=== PATIENT | female | born 1980 | race Caucasian/White ===

== ENCOUNTER 2018-04-11 05:45 | Inpatient (IN) | payer OTHER ==
[2018-04-11] MEDS ORDERED: Penicillin G Potassium 5 MILL.UNITS VIAL ONE (06:52)
[2018-04-11] MEDS ORDERED: Misoprostol 200 MCG TAB PR PRN (07:20)
[2018-04-11] MEDS ORDERED: Carboprost 250 MCG/ML AMP IM PRN (07:20)
[2018-04-11] MEDS ORDERED: Ondansetron HCl/PF 4 MG/2 ML Vial IVP PRN ×3 (07:20→20:01)
[2018-04-11] MEDS ORDERED: HYDROcodone/Acetaminophen 5/325 mg Tablet PO PRN (07:20)
[2018-04-11] MEDS ORDERED: Lidocaine 1% (PF) 30 ML VIAL SC PRN (07:20)
[2018-04-11] MEDS ORDERED: Ibuprofen 800 MG TAB PO PRN (07:20)
[2018-04-11] MEDS ORDERED: Butorphanol Tartrate 1 MG/ML VIAL SLOW IVP PRN (07:20)
[2018-04-11] MEDS ORDERED: Diphenoxylate HCl/Atropine Tablet PO PRN (07:20)
[2018-04-11] MEDS: Lactated Ringer's 1,000 ML IV SCH ×3 (07:30→10:54)
[2018-04-11] MEDS ORDERED: Penicillin G Potassium 5 MILL.UNITS in Sodium Chloride 0.9% 100 ML IVPB SCH (07:30)
[2018-04-11] MEDS ORDERED: NS w/ Oxytocin 10 units 500 ML IV SCH ×2 (07:30)
[2018-04-11 07:45] LABS: Mean Corpuscular HGB CONC 32.5 g/dL (32.0-36.0); Mean Corpuscular Volume 95.2 fL (78.0-98.0); Platelet Count 287 thou/uL (130-400); RBC Distribution Width 13.5 % (11.5-14.5); Red Blood Cell (RBC) Count 3.55 mill/uL (4.20-5.40); White Blood Cell (WBC) Count 15.5 thou/uL (4.8-10.8)
[2018-04-11 08:35] LABS: HBSAg Index 0.23 S/CO (0-0.99); Hep B Surf Ag Non-Reactive S/CO (NonReactive); Syphilis Antibody Nonreactive (Nonreactive); Syphilis Antibody Index 0.04 S/CO (<1.00 Non-Reactive)
[2018-04-11] MEDS ORDERED: Fentanyl 4 mcg/Bup 0.1% Cadd 100 ML ONE (09:21)
[2018-04-11] MEDS ORDERED: diphenhydrAMINE 50 MG/ML VIAL IVP PRN (11:23)
[2018-04-11] MEDS ORDERED: Promethazine HCl 25 MG/ML VIAL IM PRN (11:23)
[2018-04-11] MEDS ORDERED: ePHEDrine/0.9% NaCl/PF SYRINGE 50 mg/10 ml SLOW IVP PRN (11:23)
[2018-04-11] MEDS ORDERED: Naloxone HCl 0.4 mg/ml Vial IVP PRN ×2 (11:23)
[2018-04-11] MEDS ORDERED: Acetaminophen 325 MG TAB PO PRN (11:23)
[2018-04-11] MEDS ORDERED: Lactated Ringer's 500 ML IV PRN (11:23)
[2018-04-11] MEDS ORDERED: Eucerin (Mineral Oil/Petrolatum,White) 30 gm Jar TOP PRN (11:23)
[2018-04-11] MEDS ORDERED: Communication Order-Pharmacy FS SCH (11:30)
[2018-04-11] MEDS ORDERED: Penicillin G 2.5 MILL.units 2.5 MILL.UNITS in Premix Bag 1 BAG IVPB SCH (11:30)
[2018-04-11] MEDS ORDERED: Fentanyl 4 mcg/Bupivacaine 0.1% Cassette 100 ML EPIDURAL SCH (11:30)
[2018-04-11] MEDS: NS / Oxytocin 40 units/1000ml 1,000 ML IV PRN ×2 (15:20→17:15)
[2018-04-11] MEDS ORDERED: cloNIDine 0.1 MG TAB PO PRN ×4 (16:00→20:01)
[2018-04-11] MEDS ORDERED: NS / Oxytocin 40 units/1000ml 1,000 ML IV SCH (20:01)
[2018-04-11] MEDS ORDERED: Lanolin Ointment 7 GM TUBE TOP PRN (20:01)
[2018-04-11] MEDS ORDERED: Bisacodyl 10 MG SUPP PR PRN (20:01)
[2018-04-11] MEDS ORDERED: Preparation H Ointment 28 GM TUBE PR PRN (20:01)
[2018-04-11] MEDS ORDERED: Milk Of Magnesia 30 ML UDCUP PO PRN (20:01)
[2018-04-11] MEDS ORDERED: diphenhydrAMINE 25 MG CAP PO PRN (20:01)
[2018-04-11] MEDS ORDERED: Benzocaine/Menthol 20-0.5% 60 ML CAN TOP PRN (20:01)
[2018-04-11] MEDS: Ibuprofen 800 MG TAB PO SCH (22:12)
[2018-04-11] MEDS: Docusate Calcium (SURFAK) 240 MG CAP PO SCH (22:12)
[2018-04-12] MEDS: HYDROcodone/Acetaminophen 5/325 mg Tablet PO PRN ×5 (00:02→23:36)
[2018-04-12] MEDS: Ibuprofen 800 MG TAB PO SCH ×3 (05:53→21:48)
[2018-04-12 06:48] LABS: Hemoglobin 9.5 g/dL (12.0-16.0); Mean Corpuscular HGB CONC 33.2 g/dL (32.0-36.0); Mean Corpuscular Hemoglobin 32.1 pg (27.0-31.0); Mean Corpuscular Volume 96.6 fL (78.0-98.0); Mean Platelet Volume 8.4 fL (7.4-10.4); Platelet Count 235 thou/uL (130-400); RBC Distribution Width 13.4 % (11.5-14.5); Red Blood Cell (RBC) Count 2.95 mill/uL (4.20-5.40); White Blood Cell (WBC) Count 13.8 thou/uL (4.8-10.8)
[2018-04-12] MEDS: Docusate Calcium (SURFAK) 240 MG CAP PO SCH ×2 (08:16→21:48)
[2018-04-12] MEDS: Prenatal Vitamin 1 TAB PO SCH (08:16)
[2018-04-12] MEDS: Ferrous Sulfate 325 MG TAB PO SCH ×2 (08:17→18:18)
[2018-04-12] MEDS ORDERED: Adacel (T-DAP) 0.5 ML VIAL IM ONE (09:00)
[2018-04-13] MEDS: Ibuprofen 800 MG TAB PO SCH ×2 (05:53→14:30)
[2018-04-13 08:23] VITALS: BP 133/75; TEMP 97.7
[2018-04-13] MEDS: Docusate Calcium (SURFAK) 240 MG CAP PO SCH (08:42)
[2018-04-13] MEDS: Prenatal Vitamin 1 TAB PO SCH (08:42)
[2018-04-13] MEDS: Ferrous Sulfate 325 MG TAB PO SCH ×2 (08:42→17:42)
[2018-04-13] MEDS: HYDROcodone/Acetaminophen 5/325 mg Tablet PO PRN (08:45)
== END 2018-04-13 20:00 | disposition home or self-care (01) | DRG 807 ==
LOC: L&D 05:45 → 3SW 20:02
PROVIDERS: ADMIT Family Medicine; ATTEND Family Medicine
PROC: 10E0XZZ Delivery of Products of Conception, External Approach (ICD-10-PCS; principal; 2018-04-11)
PROC: 4A0HXCZ Measurement of Products of Conception, Cardiac Rate, External Approach (ICD-10-PCS; 2018-04-11)
PROC: 0HQ9XZZ Repair Perineum Skin, External Approach (ICD-10-PCS; 2018-04-11)
PROC: 10907ZC Drainage of Amniotic Fluid, Therapeutic from Products of Conception, Via Natural or Artificial Opening (ICD-10-PCS; 2018-04-11)
DX: O14.94 Unspecified pre-eclampsia, complicating childbirth (principal); Z37.0 Single live birth; O76 Abnormality in fetal heart rate and rhythm complicating labor and delivery; O99.824 Streptococcus B carrier state complicating childbirth; O70.0 First degree perineal laceration during delivery; Z3A.39 39 weeks gestation of pregnancy; Z87.891 Personal history of nicotine dependence
CPT/HCPCS: 36415; 51702; 85027; 85461; 86780; 86850; 86900; 86901; 87340; 90384; 96372; J2405; J2540

== ENCOUNTER 2023-02-26 17:26 | Emergency (ER) | payer OTHER, SELFPAY ==
[2023-02-26] MEDS ORDERED: Ibuprofen 200 MG TAB ONE (17:38)
== END 2023-02-26 18:23 | disposition home or self-care (01) ==
LOC: ERS 17:26
DX: M25.532 Pain in left wrist (principal); F17.210 Nicotine dependence, cigarettes, uncomplicated